=== PATIENT | female | born 1965 | race Native Hawaiian/Other Pacific Islander ===

== ENCOUNTER 2016-06-07 21:09 | Emergency (ER) | payer OTHER ==
[~2016-06-07] VITALS: Ht 157.5 cm; Wt 59.0 kg
[2016-06-07 21:57] LABS: PLATELET COUNT 357 K/uL (152-353)
[2016-06-07 22:05] LABS: POTASSIUM 3.4 mmol/L (3.6-5.2); SODIUM 138 mmol/L (136-145)
[2016-06-07 23:35] VITALS: BP 130/70; TEMP 97.9
== END 2016-06-07 23:36 | disposition home or self-care (01) ==
LOC: ED 21:09
PROVIDERS: Specialist
DX: R10.2 Pelvic and perineal pain (principal)
CPT/HCPCS: 80053; 81000; 82150; 83690; 85027; 99283

== ENCOUNTER 2016-06-09 09:19 | Outpatient (CLI) | payer OTHER | END 2016-06-09 19:11 | disposition home or self-care (01) | LOC: US 09:19 | DX: R10.2 Pelvic and perineal pain (principal) ==